=== PATIENT | female | born 1940 | race Caucasian/White ===

== ENCOUNTER 2020-09-24 01:10 | Emergency (ER) | payer MEDICARE, OTHER ==
[~2020-09-24] VITALS: Ht 162.5 cm; Wt 89.2 kg
[2020-09-24 01:25] VITALS: BP 189/79
--- NOTE | 2020-09-24 01:31 | ED Cardiac General ---
History of Present Illness General Chief Complaint: Cardiac/General Problems Stated Complaint: HYPERTENSION History of Present Illness Date Seen by Provider: Sep 24, 2020 Time Seen by Provider: 01:27 Initial Comments 80-year-old female presents with chronic high blood pressure along with difficulty sleeping. Patient reports that she has been having difficulty sleepi ng for a long time but has been a lot worse over the last 4 to 5 days. She states that at night it her blood pressure goes up. That she was recently started on losartan. She takes hydrochlorothiazide during the morning losartan at night but seems like her blood pressure still up at night. She takes low- dose losartan 25 mg. She is unsure of her hydrochlorothiazide dose. Patient reports that she is having a lot of difficulty due to from sleeping. Denies snoring but does have frequent awakenings during the night. No reports of fevers chills cough or other systemic complaints. Allergies and Home Medications Home Medications Losartan Potassium 25 Mg Tablet, 25 MG PO BID Prescribed by: KRISS PERRY on 09/24/20147 Zolpidem Tartrate 5 Mg Tablet, 5 MG PO HS Prescribed by: KRISS PERRY on 09/24/20147 Patient Home Medication List Home Medication List Reviewed: Yes Review of Systems Review of Systems Constitutional: see HPI; No chills, No fever EENTM: No Symptoms Reported Respiratory: Denies Cough, Denies Shortness of Air Cardiovascular: Denies Chest Pain Gastrointestinal: Denies Abdominal Pain, Denies Nausea, Denies Vomiting Genitourinary: No Symptoms Reported Musculoskeletal: no symptoms reported Skin: no symptoms reported Psychiatric/Neurological: See HPI Endocrine: See HPI Physical Exam Vital Signs Vital Signs - First Documented 09/24/20 01:25 Temp 36.0 Pulse 56 Resp 14 B/P (MAP) 189/79 (115) Pulse Ox 96 O2 Delivery Room Air Capillary Refill : Height, Weight, BMI Height: '" Weight: lbs. oz. kg; BMI Method: General Appearance: Anxious HEENT: PERRL/EOMI Neck: Full Range of Motion Respiratory: No Accessory Muscle Use, No Respiratory Distress Cardiovascular: Regular Rate, Rhythm, No Edema Gastrointestinal: Non Tender, Soft Neurologic/Psychiatric: Alert, Oriented x3, Normal Mood/Affect, manager casino II-XII Norm as Tested Skin: Normal Color, Warm/Dry Progress/Results/Core Measures Results/Orders Vital Signs/I&O 8/7/21 8/7/21 01:25 01:55 Temp 36.0 36.0 Pulse 56 49 Resp 14 14 B/P (MAP) 189/79 (115) 151/75 (100) Pulse Ox 96 96 O2 Delivery Room Air Room Air Progress Progress Note : Progress Note Patient mainly concerned with her sleep problem. I discussed with patient potential sleep apnea but she just started this. I agreed to have her double her losartan from 25 mg to 50. Also I will give her a trial of 5 Ambien. That if this helps her sleep cycle she will need a follow-up with her primary care provider for further outpatient management. I did multiple times stress following up with her outpatient provider for potential sleep study. Patient is stable and will be discharged home Departure Impression Primary Impression: Hypertension Qualified Codes: I10 - Essential (primary) hypertension Additional Impression: Insomnia Qualified Codes: G47.00 - Insomnia, unspecified Disposition: HOME, SELF-CARE Condition: Stable Departure-Patient Inst. Referrals: ESPERANZA SAXENA MD (PCP/Family) Primary Care Physician Patient Instructions: Tips for Getting Better Sleep, Insomnia (DC), Controlling Your Blood Pressure Through Lifestyle, High Blood Pressure in Adults Add. Discharge Instructions: Follow-up with your primary care provider for further outpatient evaluation Please read information on insomnia and improving your sleep for tips to help you. All discharge instructions reviewed with patient and/or family. Voiced understanding. Scripts Losartan Potassium (Losartan Potassium) 25 Mg Tablet 25 MG PO BID, #20 TAB Prov: LUIS MANUEL PERRYR Alan DO 09/24/20 Zolpidem Tartrate (Ambien) 5 Mg Tablet 5 MG PO HS for 5 Days, #5 TAB Prov: LUIS MANUEL PERRYR Alan DO 09/24/20 LUIS MANUEL PERRYR L DO Sep 24, 2020 01:31
[2020-09-24] MEDS ORDERED: ZOLP5TAB PO (01:48)
[2020-09-24] MEDS ORDERED: LOSA25TA41 PO (01:48)
--- OUTSIDE RECORDS SUMMARY | 2020-09-26 04:47 | XMS REPORT | Encounter Summary ---
Author Author [facility] Organization [facility] Address Unknown Phone Unavailable Care Team Providers Care Credit Union Manager Name Role Phone Gerson Wilkinson MD PCP Reason for Visit * Reason Onset Date Comments Appointment 09/05/2020 Encounter Details Care Team Description Date Type Department Danyelle Ann MD [address] [place] [address] [phone] Appointment 09/05/2020 Telephone [facility] [address] [facility] [address] [place], [place] [address] Social History Date Tobacco Use Types Packs/Day Years Used Never Assessed Sex Assigned at Date Recorded Not on file documented as of this encounter Miscellaneous Notes * Telephone Encounter - Nichol Stroud - 09/05/2020 10:59 AM CDT 09/05 Unable to LVM at number on file re appt for 09/06 documented in this encounter Plan of Treatment Care Team Description Date Type Specialty Danyelle Ann MD [address] [place] [address] [phone] 12/12/2020 Office Visit Neurology documented as of this encounter Visit Diagnoses Not on filedocumented in this encounter
--- OUTSIDE RECORDS SUMMARY | 2020-09-26 04:47 | XMS REPORT | Encounter Summary ---
Author Author [facility] Organization [facility] Address Unknown Phone Unavailable Care Team Providers Care Take Away Attendant Name Role Phone Gerson Wilkinson MD PCP Encounter Details Care Team Description Date Type Department 09/12/2020 Letter (Out) [facility] [address] [facility] [address] [place], [place] [id number] Social History Date Tobacco Use Types Packs/Day Years Used Never Smoker Smokeless Tobacco: Never Used Comments Alcohol Use Standard Drinks/Week Never 0 (1 standard drink = 0.6 o z pure alcohol) Alcohol Habits Answer Date Recorded How often do you have a drink containing alcohol? Never 09/06/2020 How many drinks containing alcohol do you have on No t asked a typical day when you are drinking? How often do you have six or more drinks on one Not asked occasion? Sex Assigned at Date Recorded Not on file documented as of this encounter Plan of Treatment Care Team Description Date Type Specialty Danyelle Ann MD [address] [facility] [address] [place] [address] [phone] 12/12/2020 Office Visit Neurology documented as of this encounter Visit Diagnoses Not on filedocumented in this encounter
--- OUTSIDE RECORDS SUMMARY | 2020-09-26 04:47 | XMS REPORT | Encounter Summary ---
Author Author [facility] Organization [facility] Address Unknown Phone Unavailable Care Team Providers Care Bowling Alley Manager Name Role Phone Gerson Wilkinson MD PCP Encounter Details Care Team Description Date Type Department Danyelle Ann MD [address] [place] [address] 09/13/2020 Telephone [facility] [address] [place] [address] Social History Date Tobacco Use Types Packs/Day [...] encounter Miscellaneous Notes * Telephone Encounter - Haleigh Rodriguez RN - 09/16/2020 2:40 PM CDT Pt called wanting to know her lab results. I informed her of her results and als o let her know that we are still waiting on her B1 results to come back. Pt verb alized understanding. * Telephone Encounter - Ruma Rodriguez CMA - 09/14/2020 9:08 AM CDT I have left message for patient to call back on her voicemail * Telephone Encounter - Danyelle Ann MD - 09/13/2020 4:54 PM CDT Received a result from an outside labs. Her folate and B12 are normal. B1 is sti ll pending. Thanks. * Telephone Encounter - Ruma Rodriguez CMA - 09/13/2020 3:14 PM CDT Received a phone call from patient in regards to most recent lab results. Sandy thompson will like the results of her mos recent labs. documented in this encounter Plan of Treatment Care Team Description Date Type Specialty Danyelle Ann MD [facility] [address] [address] [phone] 12/12/2020 Office Visit Neurology documented as of this encounter Visit Diagnoses Not on filedocumented in this encounter
--- OUTSIDE RECORDS SUMMARY | 2020-09-26 04:47 | XMS REPORT | Clinical Summary ---
Author Author [facility] Organization [facility] Address Unknown Phone Unavailable Care Team Providers Care Biophysics Professor Name Role Phone Gerson Wilkinson MD PCP Allergies Comments Active Allergy Reactions Severity Noted Date Erythromycin 09/06/2020 Hydrocodone-Acetaminophen 09/06/2020 Ibuprofen 09/06/2020 Medications End Date Status Medication Sig Dispensed Refills Start Date Active losartan (COZAAR) 25 MG Take 25 mg by 0 tablet mouth daily. 1 Active propranoloL (INDERAL) 40 Take 40 mg by 0 07/01 MG tablet mouth daily. 1 Active hydroCHLOROthiazide Take 25 mg by 0 (HYDRODIURIL) 25 MG mouth daily. 1 tablet Active cholecalciferol, vitamin Take 1,000 0 D3, 1,000 units(25 mcg) Units by tablet mouth daily. Active levothyroxine (SYNTHROID, Take 125 mcg 0 LEVOTHROID) 125 MCG by mouth tablet daily. Active Problems Not on file Encounters Care Team Description Date Type Specialty Danyelle Ann MD 09/13/2020 Telephone Neurology 09/12/2020 Letter (Out) Primary Care Gerson Wilkinson MD Anprasertporn, Pornpimol, MD Gait difficulty (Primary Dx); Balance problem; Vertigo; Peripheral polyneuropathy; Tremor, essential 09/06/2020 Initial consult Neurology 09/06/2020 Letter (Out) Primary Care Danyelle Ann MD Appointment 09/05/2020 Telephone Neurology Gerson Wilkinson MD Balance problem (Primary Dx) 08/03/2020 Transcribe Neurology Orders from Last 3 Months Family History Medical History Relation Name Comments Diabetes type II Father Heart disease Mother Relation Name Status Comments Father Mother Social History Date Tobacco Use Types Packs/Day [...] Assigned at Date Recorded Not on file Last Filed Vital Signs Reading Time Taken Comments Vital Sign 147/54 09/06/2020 8:58 AM CDT Blood Pressure 67 09/06/2020 8:58 AM CDT Pulse - - Temperature - - Respiratory Rate - - Oxygen Saturation - - Inhaled Oxygen Concentration 87.5 kg (193 lb) 09/06/2020 8:58 AM CDT Weight 165.1 cm (5' 5") 09/06/2020 8:58 AM CDT Height 32.12 09/06/2020 8:58 AM CDT Body Mass Index Plan of Treatment Care Team Description Date Type Specialty Danyelle Ann MD [address] [address] [phone] 12/12/2020 Office Visit Neurology Health Maintenance Due Date Last Done Comments Advance Directive has 1940 been filed Medicare Annual Wellness 1940 Td/Tdap# 1940 Zoster Vaccine# (1 of 2) 1991 Advance Directive 2006 Conversation Depression Screening 2006 PHQ-9 # Fall Risk Assessment # 2006 Osteoporosis Screening 2006 Patient Needs Advance 2006 Directive Influenza Vaccine (#1) 2020 11/24/2018, 12/18/2017, 11/23/2015, Additional history exists Pneumococcal Vaccine: 65+ Completed 11/11/2014, Years 01/20/2014 COVID-19 Vaccine Completed 04/28/2020, 03/31/2020 Results Not on filefrom Last 3 Months Insurance Type Payer Benefit Subscriber ID Effective Phone Address Plan / Dates Group MEDICARE REPLACEMENT PLAN [employer] [id number] 2017-P MEDICARE resent [id number] Micheline Steward Personal/F Self 1940 [id number] (Home) [place], [place] [address] Advance Directives For more information, please contact: [phone] Patient Mechanic Senior Explanation Type Date Recorded Health Care Directive
--- OUTSIDE RECORDS SUMMARY | 2020-09-26 04:47 | XMS REPORT | Encounter Summary ---
Author Author [facility] Organization [facility] Address Unknown Phone Unavailable Care Team Providers Care Svp Monetization Name Role Phone Gerson Wilkinson MD PCP Reason for Referral * Physical Therapy (Routine) Referred By Contact Referred To Contact Status Reason Specialty Diagnoses / Procedures Danyelle Ann MD [address] [place] [address] [facility] [address] [place] [address] Authorized Specialty Services Physical Therapy Diagnoses Required Balance problem Gait difficulty Vertigo Electronically signed by Danyelle Ann MD at * MRI/CAT/PET Scan (Routine) Referred By Contact Referred To Contact Status Reason Specialty Diagnoses / Procedures Danyelle Ann MD [address] [place] [address] [facility] [address] [place] [address] Closed Diagnoses Balance problem Gait difficulty Vertigo P rocedures MRI Head w wo contrast Electronically signed by Danyelle Ann MD at * Consultation (Routine) Referred By Contact Referred To Contact Status Reason Specialty Diagnoses / Procedures Danyelle Ann MD [address] [place] [address] [facility] [address] [id number] Authorized Specialty Services Otolaryngology Diagnoses Required Balance problem Vertigo Electronically signed by Danyelle Ann MD at Reason for Visit * Reason Comments Establish Care Balance Disorder pt. stated " balance proble m begin 3 years ago." * Consultation (Routine) Referred By Contact Referred To Contact Status Reason Specialty Diagnoses / Procedures Gerson Wilkinson MD [address] [place] [address] [facility] [address] [id number] Closed Specialty Services Neurology Diagnoses Required Balance problem Encounter Details Care Team Description Date Type Department Gerson Wilkinson MD [address] [place] [address] [phone] Danyelle Ann MD [address] [place] [address] [phone] Gait difficulty (Primary Dx); Balance problem; Vertigo; Peripheral polyneuropathy; Tremor, essential 09/06/2020 Initial consult [facility] [place] [address] [facility] [address] [place], [place] [address] Social History Date Tobacco Use Types Packs/Day [...] on file documented as of this encounter Last Filed Vital Signs Reading Time Taken [...] 09/06/2020 8:58 AM CDT Body Mass Index documented in this encounter Progress Notes * Danyelle Ann MD - 09/06/2020 9:00 AM CDT [facility] Neurology Movement Disorders Clinic Visit date: September 06, 2020 Visit type: New patient Accompanied by: spouse Information was given/obtained by: patient, spouse and medical record Information was limited due to: None Referring physician : Gerson Wilkinson MD Primary care Provider : Gerson Wilkinson MD Chief complains Chief Complaint Patient presents with [facility] Care Balance Disorder pt. stated " balance problem begin 3 years ago." Vertigo History of Present illness Micheline Steward is a 80 y.o. right handed female who is referred here for evaluati on and management of balance disorder/disequilibrium and vertigo. Patient states this started around 3 years ago (2017). She described feeling of disequilibriumwobbly feeling and leg shaking especially when eyes are closed. She described one big bout of vertigo in 2018. Since then, vertigo is not as bad but still feeling illusions of movements at times especially when her eyes are close. She also described fullness in the ears but denies tinnitus. Denies lightheadedness or fainting episodes. Patient feels that when she walks, she m ight be more listed to the right. Denies wide-based gait but her notice d some shuffling of gait. Denies any numbness in her feet, leg weakness, urinar y incontinence or chronic low back pain. She has not used a cane or walker but she holds onto the furniture or her with walking. She falls around once a year in general. She injured her hip with one of the fall causing bursitis. She has done some physical therapy before but it was in her small town in [place], [place] and did not feel that she benefited from it. Patient has not seen ENT. Today I noticed that she has slight head shaking. Patient endorsed head shaking and some hand postural/action tremor for around 10 years also. She is on propr anolol 40 mg twice daily for migraine prevention and hypertension which helps ve ry well with her tremor. Patient reported mother and sister with essential trem or. Denies resting tremor. Her dexterity is good. Sense of smell is good. Declan rosario denies RBD symptoms but she has interrupted sleep due to nocturia. Labs: TSH 1.42, free T4-1 0.4, LDL 183, creatinine 0.82. Patient has not got MR I brain or CT brain done before. Please note that I have thoroughly reviewed available outside and internal medic al records including labs and available imagings and have summarized together in above HPI. ROS Medications: Current Outpatient Medications Medication Sig Dispense Refill cholecalciferol, vitamin D3, 1,000 units(25 mcg) tablet Take 1,000 Units by mouth daily. hydroCHLOROthiazide (HYDRODIURIL) 25 MG tablet Take 25 mg by mouth daily. levothyroxine (SYNTHROID, LEVOTHROID) 125 MCG tablet Take 125 mcg by mouth d aily. losartan (COZAAR) 25 MG tablet Take 25 mg by mouth daily. propranoloL (INDERAL) 40 MG tablet Take 40 mg by mouth daily. No current facility-administered medications for this visit. Allergies: Erythromycin, Hydrocodone-acetaminophen, and Ibuprofen PMH: No past medical history on file. Physical Examination: Vital Signs: BP (!) 147/54 (BP Location: Left arm, Patient position: Sitting) | Pulse 67 | Ht 1.651 m (5' 5") | Wt 87.5 kg (193 lb) | BMI 32.12 kg/m General appearance: Alert, cooperative, pleasant, mildly obese Respiratory: No labored respiration Neurological Examination: Mental status, cognition, and cortical functions: Mental status: Awake and alert. Orientated to self. Oriented to place. Orien yecenia to time. Attention/concentration is good. Language is fluent. No aphasia Comprehension intact to conversation and commands. Speech is clear and without dysarthria. Hypophonia Absent No ideomotor apraxia Cranial nerves: Extraocular eye movements are intact in all directions. Normal pursuit and sa ccades. No supranuclear gaze palsy No nystagmus on eye movements. Muscles of facial expression are symmetric at rest and with activation. Hypomimia Absent Normal and symmetrical facial sensation bilaterally Tongue in midline and full excursion Motor: Muscle bulk is normal throughout. Muscle tone Neck Normal RUE Slight rigidity 1+ LUE Normal RLE Normal LLE Normal Muscle strength is 5/5 in proximal and distal muscle groups in all four extre mities. Reflexes (right/left): Biceps: 2+/2+ Brachioradialis: 2+/2+ Patellae: 2+/2+ Sensation: Slightly reduced pinprick sensation in a glove stocking pattern of the right foot otherwise normal Normal joint position sense Positive Romberg testing with patient weaving back and forth Abnormal movements: presence of slight postural tremor in both hands and slight head shaking nono tremor. Bradykinesia exam: Finger tap: Right mild bradykinesia Left mild bradykinesia, could be due to art hritis as well patient has diminished in amplitude and some interruption Opening/closing hands: Right normal Left normal Supination/pronation: Right normal Left normal Leg agility: Right normal Left normal Foot tapping: Right normal Left normal Gait, cerebellar and coordination: Gait: Small steps in general, narrow base, slight shuffling and also some ant algic pattern from her hip region. However, also has reduced arm swings bilater ally. Her gait is not cerebellar ataxic or magnetic pattern or apraxic pattern. Romberg: positive, patient feels weaving in her body was rocking slightly Tandem gait: Show some difficulty but can still make some straight line for a few steps Advrck-sv-ycyc and zqak-ym-wivh without dysmetria or ataxia bilaterally. FELISA: no dysdiadochokinesia Labs/Radiology: Pertinent labs and imaging findings were summarized in HPI, if any Diagnoses and Orders ICD-10-CM ICD-9-CM 1. Gait difficulty R26.9 781.2 MRI Head w wo contrast MRI Head w wo contrast Ambulatory referral to Physical Therapy 2. Balance problem R26.89 781.99 Amb Referral To Neurology Ambulatory referral to ENT MRI Head w wo contrast MRI Head w wo contrast Ambulatory referral to Physical Therapy Folate Vitamin B1 (Thiamine) Vitamin B12 Folate Vitamin B1 (Thiamine) Vitamin B12 3. Vertigo R42 780.4 Ambulatory referral to ENT MRI Head w wo contrast MRI Head w wo contrast Ambulatory referral to Physical Therapy 4. Peripheral polyneuropathy G62.9 356.9 Folate Vitamin B1 (Thiamine) Vitamin B12 Folate Vitamin B1 (Thiamine) Vitamin B12 5. Tremor, essential G25.0 333.1 Assessment and plans Ms. Micheline Steward is a 80 y.o. old right handed female who presents with disequi librium, gait difficulty and some vertigo since 2018. Patient does not require a walking aid and has rare falls so far. She also endorsed fullness in her ears but denies tinnitus. Patient also has baseline mild essential tremor and responding well to propranol ol. She reported mother and sister with essential tremor as well. On exam, I did not observe cerebellar signs on exam. Her gait is small steps in general with some antalgic pattern from her hip but she has reduced arm swing b ilaterally. This may raise a slight concern of parkinsonism. There is a questi onable slight rigidity in her right upper extremity and mild bradykinesia with f werner tapping bilaterally (could be arthritis as well) but overall, I do not thi nk she has parkinsonism. She definitely does not have hypomimia or hypophonia. The rest of repetitive movements are normal. She may have a mild degree of debi pheral neuropathy on exam with decreased pinprick sensation in right foot in a g love stocking pattern although preserved deep tendon reflexes. Romberg is posit dino with body weaving. However, I think it is highly possible that it is actual ly the vertigo symptom that happens when she closes her eyes and I think her pro blem could be more ENT/vestibular dysfunction rather than neurological cause of vertigo/disequilibrium. I will refer her to ENT to get a second opinion. We discussed about vestibular therapy through PT. [place] town and they may not offer vestibular therapy. I gave her a print out order for vestibular therapy and she will find out if there is one close to her. If not, she might need to transport here for vestibular therapy. I will also order MRI brain to rule out intracranial cause. I also ordered labs for gait instability work-up including vitamin B1, B12 and folate. Her thyroid function testing is normal. Plan 1. Referral to ENT for disequilibrium/vertigo/vertiginous symptoms 2. Referral to PT for vestibular therapy. Patient [place] to do this locally [place] 3. MRI brain with and without contrast. Patient can hold off on this and see w hat ENT recommends. She is reluctant to get MRI given her claustrophobia. If E NT also orders MRI of IAC, this can be done together with MRI brain so she does not need to go to the MRI machine twice. 4. Labs: Whole blood B1, vitamin B12, folate. Patient can get this done locall y and they can fax the results to me at [phone]. RTC in 3 months This encounter took a total of 83 minutes. This time includes face to face (conner ing a history, performing the examination, counseling the patient and family abo ut the physical exam finding, possible cause of her disequilibrium, balance issu e, discussed about work-up including MRI brain and lab results, discussed about ENT referral and discuss about vestibular therapy), preparation (reviewing refer ring physician's notes and labs), coordination of care, ordering tests, documen ting medical record time. PPE Statement: Danyelle Ann MD used Yellow precautions (Level 1 mask worn over level 3 mask, eye protection, and gloves). Danyelle Ann MD [facility] documented in this encounter Plan of Treatment Care Team Description Date Type Specialty Danyelle Ann MD [address] [address] [phone] 12/12/2020 Office Visit Neurology Order Schedule Name Type Priority Associated Diag noses 1 Occurrences starting 09/06/2020 until 09/06/2021 MRI Head w wo contrast Imaging Routine Balance problem Gait difficulty Vertigo 1 Occurrences starting 09/06/2020 until 09/06/2021 Folate Lab Routine Balance problem Peripheral polyneuropathy 1 Occurrences starting 09/06/2020 until 09/06/2021 Vitamin B1 (Thiamine) Lab Routine Balance problem Peripheral polyneuropathy Expected: 09/06/2020, Expires: 2 Vitamin B12 Lab Routine Balance problem Peripheral polyneuropathy Order Schedule Name Type Priority Associated Diag noses 1 Occurrences starting 09/06/2020 until 03/09/2021 Ambulatory referral to Outpatient Routine Balance problem ENT Referral Vertigo 1 Occurrences starting 09/06/2020 until 03/09/2021 Ambulatory referral to Outpatient Routine Balance problem Physical Therapy Referral Gait difficulty Vertigo documented as of this encounter Visit Diagnoses Diagnosis Gait difficulty - Primary Abnormality of gait Balance problem Abnormality of gait Vertigo Dizziness and giddiness Peripheral polyneuropathy Tremor, essential Essential and other specified forms of tremor documented in this encounter
--- OUTSIDE RECORDS SUMMARY | 2020-09-26 04:47 | XMS REPORT | Encounter Summary ---
Author Author [facility] Organization [facility] Address Unknown Phone Unavailable Care Team Providers Care Bi Data Architect Name Role Phone Gerson Wilkinson MD PCP Reason for Referral * Consultation (Routine) Referred By Contact Referred To Contact Status Reason Specialty Diagnoses / Procedures Gerson Wilkinson MD [address] [place] [address] [facility] [address] [place] [address] Closed Specialty Services Neurology Diagnoses Required Balance problem Electronically signed by Gerson Wilkinson MD at Encounter Details Care Team Description Date Type Department Gerson Wilkinson MD [address] [place] [address] [phone] Balance problem (Primary Dx) 08/03/2020 Transcribe [facility] Neurol ogy Orders [address] [place] [address] Social History Date Tobacco Use Types Packs/Day Years Used Never Assessed Sex Assigned at Date Recorded Not on file documented as of this encounter Plan of Treatment Care Team Description Date Type Specialty Danyelle Ann MD [address] [place], [place] [id number] 12/12/2020 Office Visit Neurology Order Schedule Name Type Priority Associated Diag noses 1 Occurrences starting 08/03/2020 until 08/03/2021 Amb Referral To Neurology Outpatient Routine Lizandro nce problem Referral documented as of this encounter Visit Diagnoses Diagnosis Balance problem - Primary Abnormality of gait documented in this encounter
--- OUTSIDE RECORDS SUMMARY | 2020-09-26 04:47 | XMS REPORT | Encounter Summary ---
Author Author [facility] Organization [facility] Address Unknown Phone Unavailable Care Team Providers Care Fabric Worker Foreman Name Role Phone Gerson Wilkinson MD PCP Encounter Details Care Team Description Date Type Department 09/06/2020 Letter (Out) [facility] [address] [facility] [address] [place] [address] Social History Date Tobacco Use Types Packs/Day [...] Date Type Specialty Danyelle Ann MD [address] [facility] [address] [place] [address] [phone] 12/12/2020 Office Visit Neurology documented as of this encounter Visit Diagnoses Not on filedocumented in this encounter
== END 2020-09-24 01:57 | disposition home or self-care (01) ==
LOC: EDUNIT# 01:10 → ER FS 01:14
DX: I10 Essential (primary) hypertension (principal); G47.00 Insomnia, unspecified
CPT/HCPCS: 99283